=== PATIENT | male | born 1955 | race Caucasian/White ===

== ENCOUNTER 2021-07-06 09:58 | Outpatient (CLI) | payer MEDICARE | END 2021-07-06 09:59 | disposition home or self-care (01) | LOC: BURRAD 09:58 | PROVIDERS: ATTEND Family Medicine | DX: M54.2 Cervicalgia (principal); M50.323 Other cervical disc degeneration at C6-C7 level; M47.812 Spondylosis without myelopathy or radiculopathy, cervical region | CPT/HCPCS: 72040 ==

== ENCOUNTER 2024-09-26 09:05 | Emergency (ER) | payer MEDICARE ==
[2024-09-26] MEDS ORDERED: Fluorescein Opthalmic Strip ONE (09:14)
[2024-09-26] MEDS ORDERED: Tetracaine 0.5% PF 4 ML BOT ONE (09:15)
== END 2024-09-26 09:38 | disposition home or self-care (01) ==
LOC: BURERS 09:05
DX: S05.01XA Injury of conjunctiva and corneal abrasion without foreign body, right eye, initial encounter (principal); I10 Essential (primary) hypertension; E78.00 Pure hypercholesterolemia, unspecified; W45.8XXA Other foreign body or object entering through skin, initial encounter; Z79.899 Other long term (current) drug therapy
CPT/HCPCS: 99283